=== PATIENT | male | born 1980 | race Caucasian/White ===

== ENCOUNTER 2020-05-31 07:00 | Outpatient (CLI) | payer OTHER ==
[2020-05-31] VITALS (17 sets, daily range): BP systolic 97–143; BP diastolic 69–86
== END 2020-05-31 23:59 | disposition home or self-care (01) ==
LOC: CARD DIAG 07:00
PROVIDERS: ATTEND Physician Assistant
DX: R55 Syncope and collapse (principal)
CPT/HCPCS: 93660